=== PATIENT | male | born 1985 | race Caucasian/White ===

== ENCOUNTER → 2024-10-25 | Outpatient (CLI) | payer MEDICAID, SELFPAY ==
[2024-10-25 13:07] LABS: Absolute Lymphocyte Count 1.31 X10^3/uL (0.83-4.51); Absolute Neutrophil Count 4.4 X10^3/uL (2.0-7.7); Basophil# 0.03 X10^3/uL; Basophil% 0.4 % (0-1); Eosinophil# 0.27 X10^3/uL; Hematocrit 46.3 % (40-54); Hemoglobin 15.2 g/dL (13.0-16.5); Lymphocyte # 1.31 X10^3/ul (0.83-4.51); Lymphocyte % 19.6 % (19-41); Mean Corp Hgb Conc 32.8 g/dL (32-36); Mean Corpuscular Hgb 28.1 pg (27.0-32.0); Mean Corpuscular Volume 85.7 fL (80-94); Mean Platelet Vol. 12.1 fl (6.2-12.0); Monocyte# 0.67 X10^3/uL; NRBC Flagged by Analyzer 0 % (0-5); Neutrophil # 4.41 X10^3/uL (2.7-7.7); Neutrophil % 65.9 % (47-70); Platelet Count 233 K/mm3 (150-450); RBC Distribution Width CV 12.2 % (11.6-14.6); RBC Distribution Width SD 37.7 fl (35.1-43.9); White Blood Count 6.7 K/mm3 (4.4-11.0)
[2024-10-29 06:08] LABS: Alternaria tenuis <0.10 kU/L (Class 0); Ash, White <0.10 kU/L (Class 0); Aspergillus fumigatus <0.10 kU/L (Class 0); Bermuda Grass <0.10 kU/L (Class 0); Birch <0.10 kU/L (Class 0); Black Walnut <0.10 kU/L (Class 0); Cat Hair / Dander,Stand <0.10 kU/L (Class 0); Cedar, Mountain <0.10 kU/L (Class 0); Cladosporium herbarum <0.10 kU/L (Class 0); Cockroach, American <0.10 kU/L (Class 0); Cottonwood <0.10 kU/L (Class 0); D farinae Mite <0.10 kU/L (Class 0); D pteronyssinus <0.10 kU/L (Class 0); Dog Epithelia <0.10 kU/L (Class 0); Elm, American White <0.10 kU/L (Class 0); Immunoglobulin E 5 IU/mL (6-495); Maple/Box Elder <0.10 kU/L (Class 0); Mouse Urine <0.10 kU/L (Class 0); Mulberry, White <0.10 kU/L (Class 0); Oak, White <0.10 kU/L (Class 0); Pecan <0.10 kU/L (Class 0); Penicillium Notatum <0.10 kU/L (Class 0); Pigweed, Rough <0.10 kU/L (Class 0); Ragweed, Short/Common <0.10 kU/L (Class 0); Russian Thistle <0.10 kU/L (Class 0); Sheep Sorrel <0.10 kU/L (Class 0); Sycamore, American <0.10 kU/L (Class 0); Timothy Grass <0.10 kU/L (Class 0)
[2024-10-29 16:08] LABS: Aspirgillus flavus Negative (Neg:<1:1); Aspirgillus fumigatus Negative (Neg:<1:1); Aspirgillus niger Negative (Neg:<1:1); Cytoplasmic Ab (C-ANCA) <1:20 titer (Neg:<1:20); Immunoglobulin E 4 IU/mL (6-495); Perinuclear Ab (P-ANCA) <1:20 titer (Neg:<1:20)
== END | disposition home or self-care (01) ==
LOC: LAB 11:57
PROVIDERS: PCP Nurse Practitioner Primary Care; Referring Provider Internal Medicine Critical Care Medicine; Visit Provider Internal Medicine Critical Care Medicine
DX: R05.3 Chronic cough (principal)
CPT/HCPCS: 36415; 82785; 85025; 86003; 86037; 86606

== ENCOUNTER → 2024-11-01 | Outpatient (CLI) | payer MEDICAID, SELFPAY | END | disposition home or self-care (01) | LOC: PSN 06:45 | PROVIDERS: PCP Nurse Practitioner Primary Care; Referring Provider Internal Medicine Critical Care Medicine; Visit Provider Internal Medicine Critical Care Medicine | DX: R05.3 Chronic cough (principal) | CPT/HCPCS: 94060; 94726; 94729 ==

== ENCOUNTER 2025-04-24 18:39 | Outpatient (REF) | payer SELFPAY ==
[2025-04-24 18:41] VITALS: BP 158/95; PULSE 69; RESP 14; TEMP 37; O2SAT 99; BMI 29.4
--- NOTE | 2025-04-24 19:53 | EDS_ITS ---
HPI History of Present Illness Chief Complaint: Occup Expose Narrative Narrative: Patient is a 39-year-old male with no known significant past medical history who presents from work after having a used insulin needle stick his hand. 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 He states that he is unsure when his last tetanus shot was. Patient notes that his work sent him over here to be further evaluated. He states that he is unsure if the patient has hepatitis or HIV [facility] Medical History no medical history Home Medications ?Medication ?Instructions ?Recorded ?Last Taken ?Type allopurinol 300 mg tablet mg PO DAILY 10/25/24 Unknown History buspirone 30 mg tablet mg PO BID 10/25/24 Unknown H istory citalopram 40 mg tablet mg PO DAILY 10/25/24 Unknown History mirtazapine 45 mg tablet mg PO 10/25/24 Unknown Histo ry albuterol sulfate 90 mcg/actuation 2 inh inhalation Q4 -6H PRN 12/06/24 Unknown Rx aerosol inhaler shortness of breath or wheez ing #8.5 grams guaifenesin 1,200 mg tablet, 1,200 mg PO .QD #30 tabs 12/06/24 Unknown Rx extended release 12 hr (Mucinex) loratadine 10 mg tablet (Claritin) 10 mg PO QDAY #30 t abs 12/06/24 Unknown Rx Allergy/AdvReac Type Severity Reaction Status Date / Time No Known Allergies Allergy Unverified 12/06/24 09:44 Social History Smoking Status: Former smoker quit date: 09/30/21 second hand exposure: No ROS ROS ED ROS Narrative Neurological: Denies numbness, weakness, tingling Skin: Complains of small red area where the insulin needle poked his left hand EXAM Physical Exam Narrative Exam Narrative: General: Patient was lying in bed rest comfortably did not appear to be in acute distress Head: Atraumatic, normocephalic Eyes: PERRL bilaterally, EOMI by, no conjunctival injection noted Neck: Soft, supple, trachea midline Cardiovascular: Regular rate and rhythm Respiratory: Clear to auscultation bilaterally Extremities: +5/5 strength noted in the bilateral upper and lower extremities Neurological: Patient follow commands knew that he was at [facility] year is 2024 Skin: Warm, dry, tact, small area of redness where the insulin needle poked his hand no concern for infection Const Vital Signs: 04/24/25 18:41 04/24/25 19:19 Temperature 98.6 F Temperature Source Oral Pulse Rate 69 Respiratory Rate 14 Respiratory Effort Normal Respiratory Pattern Normal Blood Pressure 158/95 H Blood Pressure Mean 116 Pulse Ox 99 Oxygen Delivery Method Room Air MDM MDM MDM Narrative Medical decision making narrative: Patient is a 39-year-old male who presents to the emergency department per request of his work for occupational exposure from a exposed used insulin needle. On the differential diagnose includes but not limited to HIV exposure, hepatitis exposure, superficial abrasion from used insulin needle. Patient's tetanus shot will be updated. Patient hepatitis panel negative HIV panel pending. Patient would like to go at this point time he will [facility] with his physician. I did advise him to have the patient's blood drawn tomorrow if they so choose to to test them for hepatitis or HIV. He was encouraged to return with worsening symptoms or concerns. He is agreeable to plan all question concerns answered discharged home in stable condition. Lab Data Labs: Laboratory Results - last 24 hr 04/24/25 19:18 Hep Bs Antigen Nonreactive Hepatitis C Antibody Nonreactive HIV 1&2 Antibody Nonreactive Discharge Plan Triage Chief Complaint: Occup Expose ED Provider: Ramon Lepe Dx/Rx/DC Orders Clinical Impression: Occupational exposure in workplace, Abrasion of skin Prescriptions: No Action citalopram 40 mg tablet PO DAILY buspirone 30 mg tablet PO BID mirtazapine 45 mg tablet PO allopurinol 300 mg tablet PO DAILY albuterol sulfate 90 mcg/actuation HFA aerosol inhaler 2 inh inhalation Q4-6H PRN (Reason: shortness of breath or wheezing) Qty: 8.5 3RF guaifenesin [Mucinex] 1,200 mg tablet extended release 12hr 1,200 mg PO .QD Qty: 30 5RF Rx Instructions: as needed for chest congestion loratadine [Claritin] 10 mg tablet 10 mg PO QDAY Qty: 30 11RF Primary Care Provider: Margarita Pimentel NP Referrals: Margarita Pimentel NP, [facility] [Primary Care Provider] - [facility] [Group of Physicians] - Activity Restrictions/Additional Instructions: Follow-up on the HIV panel. Hepatitis panel was negative. Tetanus shot was updated today. Return with worsening symptoms or any concerns Print Language: Fijian Disposition Disposition: Home, Self Care
[2025-04-24 20:34] LABS: HIV Nonreactive (Nonreactive); Hepatitis B Surface Antigen Nonreactive (Nonreactive); Hepatitis C Antibody Nonreactive (Nonreactive)
[2025-04-24 21:06] VITALS: BP 148/78; PULSE 79; RESP 15; TEMP 36.6; O2SAT 100
[2025-04-28 18:08] LABS: HIV-1 RNA by PCR, Quant. < 20 copies/mL (.)
== END 2025-04-24 21:07 | disposition home or self-care (01) ==
LOC: ED 18:39
PROVIDERS: PCP Nurse Practitioner Primary Care; Visit Provider Emergency Medicine
DX: Z87.891 Personal history of nicotine dependence; Z77.21 Contact with and (suspected) exposure to potentially hazardous body fluids; W46.0XXA Contact with hypodermic needle, initial encounter; S60.512A Abrasion of left hand, initial encounter; Z23 Encounter for immunization
CPT/HCPCS: 86703; 86705; 86706; 86708; 86709; 86803; 87340; 87536; 90715